=== PATIENT | male | born 1995 | race Caucasian/White ===

== ENCOUNTER 2018-11-18 15:41 | Emergency (ER) | payer SELFPAY ==
[2018-11-18 15:52] VITALS: BP 128/57
--- NOTE | 2018-11-18 15:59 | ED Physician Documentation ---
Lower Extremity Problem - HISTORIAN Historian: patient - HPI Stated Complaint: L Hip pain Chief Complaint: Lower Extremity Problem Additional Information: lt hip pain x 1 yr-no spec [id number] satis Location of Injury: L hip Timing: still present, worse Duration: intermittent episodes Recent Injury: No Severity: moderate Quality: pain, tenderness. denies: swelling, numbness, tingling Exacerbated By: walking, movement, other (ambulation has taken ) Relieved By: rest (sleeps excess helps) Associated Symptoms: denies: chest pain, shortness of breath, rapid heart rate - ROS CONST: no problems MS/SKIN/LYMPH: joint pain (lt hip only) GI/: denies: abdominal pain EYES/ENT: denies: problems with vision - PAST HX Past History: none PE Risk Factors: none Surgeries/Procedures: none Allergies/Adverse Reactions: Allergies Allergy/AdvReac Type Severity Reaction Status Date / Time No Known Allergies Allergy Verified 11/18/18 15:51 Home Medications: Ambulatory Orders Medication Instructions Recorded NK 11/18/18 - SOCIAL HX Smoking History: cigarettes Alcohol Use: occasionally Drug Use: none - FAMILY HX Family History: no significant history - VITAL SIGNS Vital Signs: Vital Signs Temp Pulse Resp BP Pulse Ox 87 15 128/57 98 11/18/18 15:45 11/18/18 15:45 11/18/18 15:45 11/18/18 15:45 - REVIEWED ASSESSMENTS Nursing Assessment Reviewed: Yes Vitals Reviewed: Yes ED Results Lab/Radiology - Orders Orders: ED Orders Category Date Time Status LT HIP 2VIEW COMPLETE [RAD] Stat Exams 11/18/18 Ordered Lower Extremity Problem - EXAM General Appearance: mild distress Neuro/Tendon: other (palp pain lt hip trocanter slr=pos at 20 deg jatin-sean sig pos no swelling or color chg) RESPIRATORY: no resp distress, chest non-tender, breath sounds normal CVS: reg rate & rhythm, heart sounds normal VASCULAR: no vascular compromise NEURO/PSYCH: oriented X3. No: depressed mood/affect SKIN: warm/dry, normal color. No: cyanosis, diaphoresis, jaundice, mottled Discharge Clincal Impression: chronic lt hip pain udo Referrals: Primary Doctor,No [Primary Care Provider] - 2 Days Comments: pt to take xzray w/him see orthopedic surgeon davni Condition: Fair Disposition: 01 HOME, SELF-CARE Decision to Admit: NO (n) Decision Time: 16:34
--- NOTE | 2018-11-18 16:23 | Diagnostic Imaging Report ---
JI HO [facility] [id number] [facility].[address] [address] Report Submission Date: November 18, 2018 4:20:08 PM CDT Patient Study Name: ANDRE MACK Date: November 18, 2018 3:56:00 PM CDT Modality Type: DX Gender: M Description: LT HIP 2VIEW COMPLETE : 89 Institution: [facility] Physician: JI HO Left hip History: Pain AP and frogleg lateral projections of the left hip demonstrate no osseous abnormalities. There are no significant degenerative findings. Mineralization is normal. The left SI joint is patent. Impression: No osseous abnormality. Electronically signed on November 18, 2018 4:20:08 PM CDT by: Leonie OROSCO
== END 2018-11-18 16:40 | disposition home or self-care (01) ==
LOC: ED 15:41
DX: M25.552 Pain in left hip (principal)
CPT/HCPCS: 99282; 99283

== ENCOUNTER 2019-03-18 15:21 | Emergency (ER) | payer SELFPAY ==
--- NOTE | 2019-03-18 15:38 | ED Physician Documentation ---
Upper Respiratory Symptoms - HISTORIAN Historian: patient - HPI Stated Complaint: congestion in head and "stuffy" Chief Complaint: General Adult Onset: hours (8) Duration: denies: constant, sudden-Onset, intermittent episodes Context: denies: recent foreign travel, insect bite(s), tick(s), recent chemotherapy Severity: mild Associated Symptoms: runny nose, allergy, headache. denies: fever, chills, sweating, earache, sinus pain, sinus drainage, sore throat, chest pain, bloody cough, productive cough, shortness of breath, hurts to breathe Worsened by Deep Breath: No Further Comments: yes (He states starting this am he had stuffy nose, head congestion. NO fever. He has been exposed to someone with similar symptoms. He has not had any OTC meds. Denies any fever. No rash . No productive cough) - ROS CONST/EYES: eye itching. denies: weakness, eye redness CVS/RESP: none LYMPH: denies: leg swelling, rash GI/: none NEURO/PSYCH: denies: fainting, dizziness MS/SKIN: denies: joint pain, muscle aches - PAST HX Lung Disease: none PE Risk Factors: none Surgeries/Procedures: none Immunizations: UTD Allergies/Adverse Reactions: Allergies Allergy/AdvReac Type Severity Reaction Status Date / Time No Known Allergies Allergy Verified 11/18/18 15:51 Home Medications: Ambulatory Orders Medication Instructions Recorded NK 11/18/18 - SOCIAL HX Smoking History: cigarettes Alcohol Use: none Drug Use: none - FAMILY HX Family History: none - VITAL SIGNS Vital Signs: Vital Signs Temp Pulse Resp BP Pulse Ox 128/57 11/18/18 16:40 - REVIEWED ASSESSMENTS Nursing Assessment Reviewed: Yes Vitals Reviewed: Yes Upper Respiratory Symptoms - EXAM General Appearance: no acute distress, alert EENT: eyes nml inspection, nml ENT inspection, PERRL, ear nml, pharynx nml, airway nml. No: pain over sinuses, pharyngeal erythema Neck: normal inspection Respiratory: no resp. distress, breath sounds nml, no pain on inspiration, speaks full sentences Abdomen: non-tender CVS: reg rate & rhythm, heart sounds normal, equal pulses Skin: color nml, no rash, warm,dry Extremities: non-tender, normal range of motion, no evidence of injury, no edema Neuro/Psych: oriented x3 Discharge Clincal Impression: Rhinitis Qualifiers: Rhinitis type: other Qualified Code(s): J31.0 - Chronic rhinitis Referrals: Primary Doctor,No [Primary Care Provider] - 2 Days Comments: 1. OTC meds as directed as needed for symptom management 2. Increase fluids 3. Follow up with PCP for any continued concerns 4. Return to ER for any increasing concerns Condition: Stable Disposition: 01 HOME, SELF-CARE Decision to Admit: NO Date of Decison to Admit: 03/18/19 Decision Time: 16:03
[2019-03-18 16:16] VITALS: BP 127/59
== END 2019-03-18 16:05 | disposition home or self-care (01) ==
LOC: ED 15:21
DX: J31.0 Chronic rhinitis (principal); F17.210 Nicotine dependence, cigarettes, uncomplicated
CPT/HCPCS: 99281; 99282

== ENCOUNTER 2019-04-05 00:14 | Emergency (ER) | payer SELFPAY ==
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
[2019-04-05 00:57] VITALS: BP 132/59
[2019-04-05] MEDS ORDERED: DIPH,PERTUSS(ACELL),TET VAC/PF 0.5 ML DISP.SYRIN IM ONE (01:02)
== END 2019-04-05 00:45 | disposition home or self-care (01) ==
LOC: ED 00:14
DX: S91.331A Puncture wound without foreign body, right foot, initial encounter (principal); W45.0XXA Nail entering through skin, initial encounter
CPT/HCPCS: 96372; 99282; 99283